=== PATIENT | male | born 1950 | race Caucasian/White ===

== ENCOUNTER → 2020-01-14 | Outpatient (CLI) | payer MEDICARE, OTHER | END | disposition home or self-care (01) | LOC: LABWHC1 10:57 | PROVIDERS: ATTEND Internal Medicine Gastroenterology | DX: Z11.59 Encounter for screening for other viral diseases (principal) | CPT/HCPCS: 87635 ==

== ENCOUNTER 2020-01-17 07:18 | Day surgery (SDC) | payer MEDICARE, OTHER ==
[2020-01-15 10:49] VITALS: BMI 37.3
[~2020-01-17 07:18] MED LIST: LACTATED RINGERS 1,000 ML IV SCH; LIDOCAINE 1% (10MG/ML) FOR IV START INTRADERMA PRN
[2020-01-17 07:34] VITALS: RESP 18; TEMP 97.8
[2020-01-17] MEDS ORDERED: LACTATED RINGERS 1,000 ML IV ONE (07:35)
[2020-01-17 07:42] LABS: Glucose,Whole Blood 118 mg/dL (75-99)
[2020-01-17] MEDS ORDERED: PROPOFOL 10 MG/ML 20 ML VIAL IV ONE (08:03)
--- NOTE | 2020-01-17 08:26 | P.PCN ---
Date of Procedure: 01/17/20 Procedure(s) Performed: BRIEF HISTORY: Patient is a 69-year-old pleasant male scheduled for an elective colonoscopy as a part of evaluation of positive cologuard. No prior history of colonoscopy. PROCEDURE PERFORMED: Colonoscopy. PREOPERATIVE DIAGNOSIS: Positive cologuard. IV sedation per Anesthesia. PROCEDURE: After informed consent was obtained, the patient, was brought into the endoscopy unit. IV sedation was administered by Anesthesia under continuous monitoring. Digital rectal examination was normal. Initially the Olympus CF-160 flexible video colonoscope was then inserted in the rectum, gradually advanced into the cecum without any difficulty. Careful examination was performed as the scope was gradually being withdrawn. Ileocecal valve and the appendiceal orifice were visualized and appeared normal. Prep was excellent. Mucosa of the cecum, ascending colon appeared normal. In the proximal transverse colon there were 3 polyps measuring 3 mm and 5 mm all of which were removed by snare polypectomy. In the descending colon there was a 1 cm broad-based polyp noted at 90 cm from the anal verge that was removed by snare polypectomy., In the sigmoid colon there were 2 polyps measuring 5 mm in size both of which were removed by snare polypectomy. Rest of the transverse colon, descending colon, sigmoid colon, and rectum appeared normal. Retroflexion was performed in the rectum and a 2 internal hemorrhoids were seen. The patient tolerated the procedure well. IMPRESSION: 3 mm and 5 mm 2 transverse colon polyps status post snare polypectomy 1 cm broad-based descending colon polyp status post snare polypectomy 5 mm 2 sigmoid colon polyps status post snare polypectomy Grade 2 internal hemorrhoids RECOMMENDATIONS: Findings of this examination were discussed with the patient as well as his family.. He was advised to follow with the biopsy results. If the biopsy shows an adenoma he can have a repeat colonoscopy in 3 years
[2020-01-17 08:51] VITALS: BP 115/67; PULSE 67
== END 2020-01-17 09:05 | disposition home or self-care (01) ==
LOC: ORWHC2ENDO 07:18
PROVIDERS: ATTEND Internal Medicine Gastroenterology
DX: D12.2 Benign neoplasm of ascending colon (principal); D12.3 Benign neoplasm of transverse colon; D12.4 Benign neoplasm of descending colon; D12.5 Benign neoplasm of sigmoid colon; K64.1 Second degree hemorrhoids; I25.2 Old myocardial infarction; I10 Essential (primary) hypertension; E78.5 Hyperlipidemia, unspecified; Z95.5 Presence of coronary angioplasty implant and graft; Z79.4 Long term (current) use of insulin; Z79.82 Long term (current) use of aspirin; Z79.899 Other long term (current) drug therapy
CPT/HCPCS: 88305; 45385; J2704

== ENCOUNTER → 2020-07-24 | Outpatient (CLI) | payer MEDICARE, OTHER ==
--- NOTE | 2020-07-24 14:42 | CT ---
EXAMINATION TYPE: CT pelvis wo con DATE OF EXAM: 07/24/2020 COMPARISON: None HISTORY: Prostate cancer. CT DLP: 916.3 mGycm Automated exposure control for dose reduction was used. Unenhanced CT of the pelvis was performed. GI contrast was utilized. The lack of contrast limits evaluation. FINDINGS: The prostate gland is of normal size. Glandular calcifications are noted. PeriProstate fat planes are within normal limits without evidence for infiltration. Seminal vesicles are symmetric. No evidence for pelvic adenopathy or mass. Atheromatous changes are seen of the abdomi nal aorta distally and iliac vessels. Lower kidneys demonstrate hyperdense and hypodense lesions whic h may reflect cysts and/or hemorrhagic cyst. Severe degenerative change L5-S1. IMPRESSION: NO SIGNIFICANT ABNORMALITY SEEN.
== END | disposition home or self-care (01) ==
LOC: RADCTMAIN 12:32
PROVIDERS: ATTEND Urology
DX: C61 Malignant neoplasm of prostate (principal)
CPT/HCPCS: 82565; 84520; 72192; 36415; Q9967

== ENCOUNTER → 2020-07-27 | Outpatient (CLI) | payer MEDICARE, OTHER ==
--- NOTE | 2020-07-27 15:45 | NM ---
EXAMINATION TYPE: NM bone scan whole body DATE OF EXAM: 07/27/2020 COMPARISON: NONE HISTORY: 70-year-old male new diagnosis prostate cancer. TECHNIQUE: Delayed whole-body scanning was performed following the injection of 23.0 mCi Tc 99m MDP. Images acquired 3 hours post injection. FINDINGS: Degenerative changes of the shoulders, sternoclavicular joints, left posterior elements of the lower lumbar spine, left-sided posterior elements lower thoracic spine, and upper thoracic spine. No suspic ious distribution of tracer to suggest osseous metastatic disease. IMPRESSION: Scattered degenerative tracer activity as above. No scintigraphic evidence for osseous metastatic dis ease.
== END | disposition home or self-care (01) ==
LOC: RADNMMAIN 09:41
PROVIDERS: ATTEND Urology
DX: M19.019 Primary osteoarthritis, unspecified shoulder (principal); M47.814 Spondylosis without myelopathy or radiculopathy, thoracic region; M47.816 Spondylosis without myelopathy or radiculopathy, lumbar region; C61 Malignant neoplasm of prostate
CPT/HCPCS: 78306; A9503

== ENCOUNTER → 2023-04-27 | Outpatient (CLI) | payer MEDICARE ==
[2023-04-27 10:57] LABS: Appearance,Urine Cloudy (Clear); Bacteria,Urine Rare /hpf; Bilirubin,Urine Negative (Negative); Blood,Urine Moderate (Negative); Color,Urine Colorless; Glucose,Urine (UA) 4+ (Negative); Ketones,Urine Negative (Negative); Leukocyte Esterase,Urine Large (Negative); Nitrite,Urine Negative (Negative); PH, Urine 5.5 (5.0-8.0); Protein,Urine 1+ (Negative); RBC,Urine 30 /hpf (0-5); Specific Gravity,Urine 1.019 (1.001-1.035); Squamous Epithelial Cell,Urine <1 /hpf (0-4); Urobilinogen,Urine <2.0 mg/dL (<2.0); WBC,Urine >182 /hpf (0-5)
== END | disposition home or self-care (01) ==
LOC: LABWHC1 09:21
PROVIDERS: ATTEND Radiology Radiation Oncology
DX: Z08 Encounter for follow-up examination after completed treatment for malignant neoplasm (principal); C61 Malignant neoplasm of prostate; Z85.46 Personal history of malignant neoplasm of prostate; Z92.3 Personal history of irradiation; Z79.818 Long term (current) use of other agents affecting estrogen receptors and estrogen levels; Z87.891 Personal history of nicotine dependence; R35.1 Nocturia
CPT/HCPCS: 81001; 87086